=== PATIENT | female | born 1970 | race Caucasian/White ===

== ENCOUNTER 2018-07-22 15:39 | Outpatient (CLI) | payer OTHER ==
--- NOTE | 2018-07-22 16:04 | RAD ---
Chest 2 views HISTORY: Disability exam. Dyspnea. FINDINGS: No comparison. Cardiac silhouette and pulmonary vasculature are unremarkable. Mediastinum i s midline. No confluent airspace consolidation, pneumothorax, or pleural fluid. IMPRESSION: No active cardiopulmonary abnormalities are demonstrated.
--- NOTE | 2018-07-22 16:09 | RAD ---
Lumbar spine 2 views HISTORY: Low back pain. Disability evaluation. FINDINGS: There are 5 lumbar type vertebrae. Pedicles are intact. Vertebral body heights are maintain ed. Very mild physiologic wedging of the lower thoracic vertebrae on the lateral view. Prominent osteophytosis throughout the lower facets with scattered osteophytosis throughout the vertebral janel s. Disc space narrowing and minimal degenerative spondylolisthesis at the L4-5 level. IMPRESSION: Osseous degenerative changes lumbar spine. No acute osseous abnormalities are demonstrate d. No evidence of compression fracture.
== END 2018-07-22 15:40 | disposition home or self-care (01) ==
LOC: BICRAD 15:39
PROVIDERS: ATTEND Internal Medicine
DX: Z02.71 Encounter for disability determination (principal); M47.816 Spondylosis without myelopathy or radiculopathy, lumbar region
CPT/HCPCS: 71046; 72100

== ENCOUNTER 2018-12-22 15:22 | Emergency (ER) ==
[2018-12-22 16:08] LABS: #Lymphocytes 1.8 thou/uL (1.20-3.40); #Monocytes 0.7 thou/uL (0.11-0.59); #Neutrophils 8.4 thou/uL (1.40-6.50); %Basophils 0.2 % (0.0-1.0); %Eosinophils 0.1 % (0.0-10.0); %Lymphocytes 16.6 % (21.0-51.0); %Monocytes 6.6 % (0.0-10.0); %Neutrophils 76.5 % (42.0-75.0); Hemoglobin 13.6 g/dL (12.0-16.0); Mean Corpuscular HGB CONC 33.3 g/dL (32.0-36.0); Mean Corpuscular Hemoglobin 28.8 pg (27.0-31.0); Mean Corpuscular Volume 86.4 fL (78.0-98.0); Mean Platelet Volume 8.9 fL (7.4-10.4); Platelet Count 276 thou/uL (130-400); RBC Distribution Width 12.1 % (11.5-14.5); Red Blood Cell (RBC) Count 4.72 mill/uL (4.20-5.40); White Blood Cell (WBC) Count 10.9 thou/uL (4.8-10.8)
[2018-12-22 16:15] LABS: Amphetamine Detected (NotDetected); Barbiturates Screen Not Detected (NotDetected); Benzodiazepine Screen Not Detected (NotDetected); Cocaine Metabolite Screen Not Detected (NotDetected); Medtox Reader # READER 4; Methadone Not Detected (NotDetected); Methamphetamine Detected (NotDetected); Opiate Screen Not Detected (NotDetected); Oxycodone Screen Not Detected (NotDetected); Phencyclidine (PCP) Not Detected (NotDetected); THC/Cannabinoid Screen Not Detected (NotDetected); Tricyclic Screen Not Detected (NotDetected)
[2018-12-22 16:16] LABS: Medtox Control Line Valid? VALID (VALID)
[2018-12-22 16:20] LABS: Bilirubin Negative (Negative); Blood, Urine Trace (Negative); Calcium Oxalate Crystals Rare HPF (None Seen); Clarity Clear (Clear); Glucose, Urine (Dipstick) 30 mg/dL (Negative); Leukocyte Negative Leu/uL (Negative); Nitrite Negative (Negative); Protein, Urine (Dipstick) Negative (Neg-Trace); Urobilinogen 3 mg/dL (Less than 2); WBC/HPF 0-3 HPF (0-3)
[2018-12-22 16:28] LABS: Bacteria/HPF Rare-Few HPF (None Seen); Mucous/LPF 1+ LPF (<2+)
[2018-12-22 16:29] LABS: ALT (SGPT) 26 U/L (8-55); AST (SGOT) 25 U/L (5-34); Albumin 3.8 g/dL (3.5-5.0); Alkaline Phosphatase 80 U/L (40-110); Anion Gap 11 mmol/L (10-20); BUN (Urea Nitrogen) 7 mg/dL (7.0-18.7); Bilirubin, Total 0.6 mg/dL (0.2-1.2); Calc. Creatinine Clearance 0 mL/min (70-130); Calcium 8.8 mg/dL (7.8-10.44); Carbon Dioxide 24 mmol/L (22-29); Chloride 107 mmol/L (98-107); Estimated GFR-MDRD 84; Globulin 3.2 g/dL (2.4-3.5); Glucose 85 mg/dL (70-105); Potassium 3.7 mmol/L (3.5-5.1); Sodium 138 mmol/L (136-145)
--- NOTE | 2018-12-25 23:23 | EKG ---
Test Reason : AMS Blood Pressure : / mmHG Vent. Rate : 104 BPM Atrial Rate : 104 BPM P-R Int : 142 ms QRS Dur : 088 ms QT Int : 358 ms P-R-T Axes : 053 004 033 degrees QTc Int : 470 ms Sinus tachycardia Otherwise normal ECG Confirmed by EVELIO AGUERO DO ([id number]), magazine editor ROSALBA BRUNER ([id number]) on 12/25/2018 11:23:13 PM Referred By: Confirmed By:EVELIO AGUERO DO
== END 2018-12-22 17:23 | disposition left against medical advice (07) ==
LOC: ERS 15:22
DX: F19.10 Other psychoactive substance abuse, uncomplicated (principal); E11.9 Type 2 diabetes mellitus without complications; J44.9 Chronic obstructive pulmonary disease, unspecified; F17.210 Nicotine dependence, cigarettes, uncomplicated
CPT/HCPCS: 36415; 80053; 80306; 81003; 81015; 85025; 93005

== ENCOUNTER 2019-01-03 00:41 | Emergency (ER) | payer SELFPAY ==
--- NOTE | 2019-01-03 08:51 | RAD ---
PORTABLE CHEST: DATE: 01/03/2019. PROVIDED CLINICAL HISTORY: Chest pain. FINDINGS: Comparison 01/02/2019. Cardiac and mediastinal silhouette is within normal limits. Lungs appear dav ar. No pleural fluid or pneumothorax apparent. IMPRESSION: No evidence for an acute cardiopulmonary process. POS: OFF
== END 2019-01-03 03:49 | disposition left against medical advice (07) ==
LOC: ERS 00:41
DX: R07.9 Chest pain, unspecified (principal); E11.9 Type 2 diabetes mellitus without complications; J44.9 Chronic obstructive pulmonary disease, unspecified; F17.210 Nicotine dependence, cigarettes, uncomplicated; Z71.6 Tobacco abuse counseling; Z79.4 Long term (current) use of insulin; Z79.899 Other long term (current) drug therapy
CPT/HCPCS: 36415; 71045; 84484; 85379; 93005; 99406

== ENCOUNTER 2019-02-28 18:06 | Inpatient (IN) | payer SELFPAY ==
[2019-02-28 19:15] LABS: Actual Bicarbonate (HCO3a) 24.9 mEq/L (22-28); Analyzer IN Cardio ER; Base Excess (BEa) 0.4 mEq/L (-2.0 to +3.0); CO2 Tension 39.8 mmHg (35.0-45.0); Calcium, Ionized 1.16 mmol/L (1.12-1.30); Carboxyhemoglobin (COHb) 3.1 gm% (0.0-3.0); Hemoglobin (Hb) 13.4 g/dL (12.0-16.0); O2 Tension (PaO2) 92.7 mmHg (80.0-100.0); Potassium - ABG Lab 3.85 mmol/L (3.70-5.30); pH, Arterial 7.42 (7.35-7.45)
[2019-02-28 19:19] LABS: Puncture Site RRA
[2019-02-28 19:25] LABS: #Eosinphils 0.1 thou/uL (0.0-0.7); #Lymphocytes 3.2 thou/uL (1.20-3.40); #Monocytes 0.9 thou/uL (0.11-0.59); #Neutrophils 9.7 thou/uL (1.40-6.50); %Basophils 0.1 % (0.0-1.0); %Lymphocytes 23.1 % (21.0-51.0); %Monocytes 6.4 % (0.0-10.0); %Neutrophils 69.4 % (42.0-75.0); Hemoglobin 13.1 g/dL (12.0-16.0); Mean Corpuscular HGB CONC 33.3 g/dL (32.0-36.0); Mean Corpuscular Volume 86.9 fL (78.0-98.0); Mean Platelet Volume 8.3 fL (7.4-10.4); Platelet Count 302 thou/uL (130-400); RBC Distribution Width 12.6 % (11.5-14.5); Red Blood Cell (RBC) Count 4.53 mill/uL (4.20-5.40)
[2019-02-28 19:40] LABS: Bilirubin Negative (Negative); Blood, Urine Negative (Negative); Clarity Clear (Clear); Glucose, Urine (Dipstick) Normal (Negative); Leukocyte Negative Leu/uL (Negative); Nitrite Negative (Negative); Protein, Urine (Dipstick) Negative (Neg-Trace); Urobilinogen Normal mg/dL (Less than 2)
[2019-02-28 19:50] LABS: ALT (SGPT) 22 U/L (8-55); AST (SGOT) 26 U/L (5-34); Albumin 3.5 g/dL (3.5-5.0); Alkaline Phosphatase 87 U/L (40-110); Anion Gap 10 mmol/L (10-20); BUN (Urea Nitrogen) 10 mg/dL (7.0-18.7); Bilirubin, Total 0.4 mg/dL (0.2-1.2); Calc. Creatinine Clearance 0 mL/min (70-130); Calcium 8.7 mg/dL (7.8-10.44); Carbon Dioxide 25 mmol/L (22-29); Chloride 110 mmol/L (98-107); Estimated GFR-MDRD Greater than 90; Glucose 107 mg/dL (70-105); Lipase 18 U/L (8-78); Magnesium 1.8 mg/dL (1.6-2.6); Potassium 3.8 mmol/L (3.5-5.1); Protein, Total 6.5 g/dL (6.0-8.3); Sodium 141 mmol/L (136-145)
[2019-02-28] MEDS ORDERED: Sodium Chloride 0.9% 100 ML ONE (19:56)
[2019-02-28] MEDS ORDERED: Cefepime 2 GM VIAL ONE (19:56)
[2019-02-28] MEDS ORDERED: Vancomycin 1.5 GRAM/300 ML BAG 1.5 GM in Premix Bag 1 BAG IVPB SCH (20:00)
--- NOTE | 2019-02-28 20:24 | RAD ---
PORTABLE CHEST: History: Mental status change. Overdose. Comparison: 01-03-19 FINDINGS: Lungs appear clear. No infiltrate identified. Heart and mediastinum unremarkable. Visualized osseous structures appear intact. IMPRESSION: No acute findings. POS: OFF
--- NOTE | 2019-02-28 20:24 | CT ---
CT HEAD WITHOUT CONTRAST: Indications: Overdose. Mental status change. FINDINGS: The ventricles have normal size and position. No evidence for intracranial mass or hemorrhage. No inf arct or edema. Sinuses and mastoids appear clear. IMPRESSION: No acute abnormality. POS: OFF
[2019-02-28] MEDS ORDERED: Succinylcholine Chloride 20 MG/ML 10 ml SYRINGE FS ONE (20:25)
[2019-02-28] MEDS ORDERED: Fentanyl 100 MCG/2 ML VIAL ONE (20:46)
[2019-02-28] MEDS ORDERED: Midazolam HCl 2 mg/2 ml Vial ONE (20:49)
[2019-02-28 21:02] LABS: Amphetamine Detected (NotDetected); Barbiturates Screen Not Detected (NotDetected); Benzodiazepine Screen Not Detected (NotDetected); Cocaine Metabolite Screen Not Detected (NotDetected); Medtox Control Line Valid? VALID (VALID); Medtox Reader # READER 4; Methadone Not Detected (NotDetected); Methamphetamine Detected (NotDetected); Opiate Screen Not Detected (NotDetected); Oxycodone Screen Not Detected (NotDetected); Phencyclidine (PCP) Not Detected (NotDetected); THC/Cannabinoid Screen Not Detected (NotDetected); Tricyclic Screen Detected (NotDetected)
[2019-02-28] MEDS ORDERED: fentaNYL Citrate/PF 2,000 MCG in Sodium Chloride 0.9% 60 ML IV SCH (21:02)
--- NOTE | 2019-02-28 21:04 | RAD ---
Portable chest: HISTORY: Intubation COMPARISON: Film earlier today FINDINGS: Lung stevens are clear. Heart and mediastinum appear unremarkable. Vascularity is normal. E T tube has tip above greer. NG tube appears adequately positioned. Visualized osseous structures unremarkable. IMPRESSION: No acute finding
[2019-02-28 21:11] LABS: Acetaminophen Less than 6.0 mcg/mL (10.0-30.0); Alcohol Less than 10 mg/dL (Less than 10); Salicylate Less than 8.0 mg/dL (15.0-30.0)
[2019-02-28 21:12] LABS: Actual Bicarbonate (HCO3a) 20.3 mEq/L (22-28); Analyzer IN Cardio ER; Base Excess (BEa) -4.3 mEq/L (-2.0 to +3.0); CO2 Tension 35.9 mmHg (35.0-45.0); Calcium, Ionized 1.14 mmol/L (1.12-1.30); Carboxyhemoglobin (COHb) 2.1 gm% (0.0-3.0); Hemoglobin (Hb) 12.4 g/dL (12.0-16.0); O2 Tension (PaO2) 62.8 mmHg (80.0-100.0); Potassium - ABG Lab 3.65 mmol/L (3.70-5.30); pH, Arterial 7.37 (7.35-7.45)
[2019-02-28 21:14] LABS: ALV-art Gradient 106.225 (0-20); Puncture Site RBA
[2019-02-28] MEDS ORDERED: Ondansetron PF 4 MG/2 ML Vial IVP PRN (21:22)
--- NOTE | 2019-02-28 22:05 | HP ---
PRESENTING COMPLAINT: Altered mental status. HISTORY OF PRESENT ILLNESS: Ms. Rajeev Yang is a 48-year-old female with reported history of being homeless, who was brought in by EMS after she was found along the road, confused. The patient has also told the EMS that she has taken 27 pills of Seroquel. It is unclear where the patient got the Seroquel from. She was brought by EMS and initially the patient was agitated, bit confused on arrival at the ED; however, became progressively obtunded and unresponsive and she was intubated for airway protection. She did receive Ativan x2 as well as Narcan as recommended by Poison Control prior to the intubation. She is currently on vent now and unable to give more history. PAST MEDICAL HISTORY: None, but presumed psychiatric disorder. HOME MEDICATIONS: Unknown and not available from medication record. ALLERGY: As per record, diphenhydramine. REVIEW OF SYSTEMS: Unable to obtain. PHYSICAL EXAMINATION: VITAL SIGNS: On presentation, current vitals; blood pressure of 102/66, pulse of 93, respiratory rate of 18, O2 saturation 100% on vent, FiO2 of 50%, reduced now to 30%, PEEP of 5. GENERAL: Average built, slightly overweight, middle-aged female, intubated, orally tubed. HEENT: Head is atraumatic, normocephalic. Pupils equal and reactive to light. NECK: No JVD. No carotid bruit. RESPIRATORY: Good air entry bilaterally. CARDIOVASCULAR: S1, S2. Mildly tachycardic. GI: Abdomen is full, soft, nontender. EXTREMITIES: No pedal edema. No calf tenderness. No open wounds. NEUROLOGIC: The patient is intubated, post sedation. LABORATORY DATA: WBC 14.0 with 69% neutrophils, no bands. Hemoglobin 13, platelets normal at 302. Initial ABG on presentation with pH of 7.37, pO2 of 62, and pCO2 of 35. On presentation in the ED post extubation, pH of 7.42, pCO2 of 39, and pO2 of 92. Vent settings adjusted. Sodium 141, potassium 3.8, bicarb of 25, BUN 10, creatinine 0.6, glucose 107, magnesium 1.8. AST and alkaline phosphatase normal. Troponin less than 0.01. Lipase and albumin normal. Urinalysis was negative. Urine drug screen was positive for tricyclics as well as amphetamine and methamphetamine. Influenza A and B negative. Chest x-ray shows no acute intrathoracic pathology. Head CT was negative for any acute pathology. EKG shows sinus tachycardia at 115 beats per minute with QTc of 344, corrected of 475. IMPRESSION: 1. Altered mental status with toxic encephalopathy. 2. Methamphetamine and Seroquel overdose. 3. On mechanical ventilation for airway protection. 4. Leukocytosis, mild. PLAN: We will admit the patient to intensive care unit. We will manage the patient for the following; 1. Acute respiratory failure due to altered mental status and intubated for airway protection. We will reduce vent settings to low settings. Possibly, no sedative medication for now. The patient can safely be weaned off the vent when more awake and conversant. We will consult Pulmonary to follow while in ICU. 2. Toxic encephalopathy, likely due to methamphetamine abuse with presumed Seroquel overdose given urine tox of elevated tricyclics. We will start the patient on D5 NS. Continue gentle hydration for now. Monitor daily EKG for QTc prolongation. 3. Follow magnesium level. 4. History of psych disorder. The patient might need Psych evaluation post extubation prior to discharge. 5. DVT prophylaxis, subcutaneous Lovenox. 6. Advance directives, unable to obtain given the patient is intubated. 7. Disposition: Reported the patient is homeless. We will consult case management to look into patient's social setting when patient is more awake. Total time spent in review of record, evaluation, and discussion with the ED physician greater than 60 minutes. Job ID: [id number]
[2019-03-01 00:26] VITALS: BMI 36.5
[2019-03-01] MEDS: Piperacillin/Tazobactam 3.375 GM in Sodium Chloride 0.9% 100 ML IVPB SCH ×2 (01:36→05:44)
[2019-03-01] MEDS: Dextrose 5 % And 0.9 % NaCl 1,000 ML IV SCH ×3 (01:38→12:41)
[2019-03-01 03:52] LABS: #Eosinphils 0.1 thou/uL (0.0-0.7); #Lymphocytes 2.3 thou/uL (1.20-3.40); #Monocytes 0.7 thou/uL (0.11-0.59); #Neutrophils 8.1 thou/uL (1.40-6.50); %Basophils 0.4 % (0.0-1.0); %Eosinophils 0.6 % (0.0-10.0); %Lymphocytes 20.7 % (21.0-51.0); %Monocytes 6.2 % (0.0-10.0); %Neutrophils 72.2 % (42.0-75.0); Mean Corpuscular HGB CONC 32.9 g/dL (32.0-36.0); Mean Corpuscular Hemoglobin 28.8 pg (27.0-31.0); Mean Corpuscular Volume 87.7 fL (78.0-98.0); Mean Platelet Volume 7.9 fL (7.4-10.4); Platelet Count 264 thou/uL (130-400); RBC Distribution Width 12.5 % (11.5-14.5); Red Blood Cell (RBC) Count 4.16 mill/uL (4.20-5.40); White Blood Cell (WBC) Count 11.2 thou/uL (4.8-10.8)
[2019-03-01 04:09] LABS: ALT (SGPT) 20 U/L (8-55); AST (SGOT) 20 U/L (5-34); Albumin 3.2 g/dL (3.5-5.0); Alkaline Phosphatase 78 U/L (40-110); Anion Gap 10 mmol/L (10-20); BUN (Urea Nitrogen) 8 mg/dL (7.0-18.7); Bilirubin, Total 0.7 mg/dL (0.2-1.2); Calc. Creatinine Clearance 166 mL/min (70-130); Calcium 8.5 mg/dL (7.8-10.44); Carbon Dioxide 24 mmol/L (22-29); Chloride 111 mmol/L (98-107); Estimated GFR-MDRD Greater than 90; Globulin 2.8 g/dL (2.4-3.5); Glucose 148 mg/dL (70-105); Magnesium 1.9 mg/dL (1.6-2.6); Potassium 3.8 mmol/L (3.5-5.1); Sodium 141 mmol/L (136-145)
[2019-03-01 04:14] LABS: Troponin I Less than 0.010 ng/mL (< 0.028)
[2019-03-01] MEDS ORDERED: Famotidine/PF 20 mg/2ml Vial SLOW IVP SCH (09:00)
--- NOTE | 2019-03-01 10:06 | PDOC.HOSPP ---
- Subjective Encounter Date: 03/01/19 Encounter Time: 10:04 Subjective: Ms. Boo was seen today in follow-up of overdose of Seroquel. She is intubated and sedated. - Objective Vital Signs & Weight: Vital Signs (12 hours) Temp Pulse Resp BP Pulse Ox 03/01/19 08:08 77 101/57 L 03/01/19 08:00 98.4 F 12 100 03/01/19 06:00 12 03/01/19 05:00 98.6 F 03/01/19 04:00 12 03/01/19 02:45 83 117/70 03/01/19 02:00 12 03/01/19 01:05 100 03/01/19 00:33 100 03/01/19 00:27 88 141/76 H 03/01/19 00:26 98.5 F 03/01/19 00:00 98.5 F 12 Weight Weight 212 lb 15.465 oz Most Recent Monitor Data Heart Rate from ECG 79 NIBP 101/57 NIBP BP-Mean 71 Respiration from ECG 12 SpO2 100 I&O: 02/28/19 03/01/19 03/02/19 06:59 06:59 06:59 Intake Total 1069 Output Total 2725 390 Balance -1656 -390 Result Diagrams: 03/01/19 03:43 03/01/19 03:14 Additional Labs: Accuchecks 03/01/19 02/28/19 00:26 19:10 POC Glucose 140 H 108 Hospitalist ROS - Medication Medications: Active Medications Generic Name Dose Route Start Last Admin Trade Name Freq PRN Reason Stop Dose Admin Dextrose/Sodium Chloride 1,000 mls @ 125 mls/hr 02/28/19 21:30 03/01/19 05:45 D5 0.9% Ns IV 1,000 mls .Q8H MIGUEL Administration Piperacillin Sod/Tazobactam 100 mls @ 200 mls/hr 02/28/19 23:59 03/01/19 05: 44 Sod 3.375 gm/ Sodium Chloride IVPB 100 mls Q6HR MIGUEL Administration - Exam Eye: PERRL Heart: RRR, no murmur, no gallops, no rubs, normal peripheral pulses Respiratory: CTAB, no wheezes, no rales, no ronchi, normal chest expansion, no tachypnea, normal percussion Gastrointestinal: soft, non-tender, non-distended, normal bowel sounds, no palpable masses, no hepatomegaly, no splenomegaly Extremities: no cyanosis, no clubbing, no edema Hosp A/P (1) Overdose of antipsychotic Code(s): T43.501A - POISONING BY UNSP ANTIPSYCHOT/NEUROLEPT, ACCIDENTAL, INIT Status: Acute (2) Acute respiratory failure with hypoxemia Code(s): J96.01 - ACUTE RESPIRATORY FAILURE WITH HYPOXIA Status: Acute - Plan * Acute respiratory failure due to Seroquel Overdose- continue supportive care * Will await further recommendations from PCCM * [facility] evaluation once stable
[2019-03-01] MEDS: Enoxaparin Sodium 40 MG/0.4 ML SYRINGE SC SCH (10:10)
--- NOTE | 2019-03-01 15:11 | CON ---
DATE OF CONSULTATION: 03/01/2019 SERVICE: Pulmonary Medicine. REASON FOR CONSULT: ICU patient. HISTORY OF PRESENT ILLNESS: The patient is a 48-year-old white female with past medical history significant for a history of suicide attempts. Ultimately, she was in her usual state of health when she intentionally overdosed on some Seroquel. On the way to the Emergency Department, she became increasingly somnolent, and she was intubated to protect her airway. Currently, she is sedated on mechanical ventilation. She cannot provide any additional elements of the history. It is apparent that she took about 27 pills of that Seroquel. PAST MEDICAL HISTORY: Psychiatric disorder, not currently specified. PAST SURGICAL HISTORY: Unknown. ALLERGIES: DIPHENHYDRAMINE. MEDICATIONS: List of the inpatient medications was reviewed. Multiple updates were made. FAMILY HISTORY: Noncontributory. SOCIAL HISTORY: Unknown. REVIEW OF SYSTEMS: This cannot be obtained as the patient is currently intubated and sedated. PHYSICAL EXAMINATION: VITAL SIGNS: Afebrile, pulse 77, blood pressure 143/81, respirations 12, and saturation 100%, currently on 21% FiO2 and a PEEP of 5. GENERAL: The patient is intubated and sedated. HEENT: Normocephalic and atraumatic. Sclerae white. Conjunctivae pink. Oral mucosa is moist without lesions. LUNGS: Decent air entry. No prolonged expiratory phase or wheezing is appreciated. HEART: Normal rate. Regular. ABDOMEN: Soft, nontender, and nondistended. Bowel sounds positive. MUSCULOSKELETAL: No cyanosis or clubbing. There is no pitting in the bilateral lower extremities. NEUROLOGIC: Grossly nonfocal. LABORATORY DATA: WBC 11.2, hemoglobin 12.0, and platelets 264,000. A pH of 7.37, pCO2 of 36, and pO2 of 63. Basic metabolic profile and liver function studies otherwise unremarkable. TSH 1.7. Ammonia 35, lactate 1.5, troponin is negative. Urinalysis is unremarkable. Urine drug screen is positive for amphetamines and tricyclics. Otherwise; alcohol, acetaminophen, and salicylates are unremarkable. Influenza A and B are negative. Blood cultures x2 remain negative to-date. ASSESSMENT: 1. Respiratory failure secondary to inability to protect airway. 2. Metabolic encephalopathy. 3. Intentional drug overdose with Seroquel. DISCUSSION AND PLAN: I will give her a sedation holiday. When she meets criteria, extubation will be done. At that point, if she demonstrates decent mentation, she can be transitioned to the floor. At this point, she has a narrow complex, and no significant QTc prolongation. As such, I do not even think she needs telemetry. MHMR evaluation will need to be done prior to her dismissal from the hospital. She was placed on antibiotics, but frankly I do not see the need for it, so the Zosyn will be interrupted. CRITICAL CARE TIME: 30 minutes. Job ID: [id number] MTDD
[2019-03-02] MEDS: Dextrose 5 % And 0.9 % NaCl 1,000 ML IV SCH ×3 (02:49→15:30)
[2019-03-02] MEDS: Enoxaparin Sodium 40 MG/0.4 ML SYRINGE SC SCH (08:58)
[2019-03-02 17:29] LABS: Troponin I Less than 0.010 ng/mL (< 0.028)
--- NOTE | 2019-03-02 17:33 | PDOC.HOSPP ---
- Subjective Encounter Date: 03/02/19 Encounter Time: 17:31 Subjective: Ms. Boo was seen today in follow-up. She notes some chest pressure, no dyspnea , no nausea or vomiting. - Objective Vital Signs & Weight: Vital Signs (12 hours) Temp Pulse Resp BP Pulse Ox 03/02/19 15:45 97.8 F 104 H 16 132/79 97 03/02/19 11:17 98.7 F 100 20 135/76 89 L 03/02/19 08:00 98.3 F 87 20 134/73 98 03/02/19 06:20 97.8 F 92 18 165/87 H 97 Weight Weight 212 lb 15.465 oz Most Recent Monitor Data Heart Rate from ECG 89 NIBP 138/90 NIBP BP-Mean 106 Respiration from ECG 12 SpO2 99 I&O: 03/01/19 03/02/19 03/03/19 06:59 06:59 06:59 Intake Total 1069 2280 Output Total 2725 2210 Balance -1656 70 Result Diagrams: 03/01/19 03:43 03/01/19 03:14 Hospitalist ROS - Medication Medications: Active Medications Generic Name Dose Route Start Last Admin Trade Name Freq PRN Reason Stop Dose Admin Enoxaparin Sodium 40 mg 03/01/19 09:00 03/02/19 08:58 Lovenox SC 40 mg 0900 MIGUEL Administration Dextrose/Sodium Chloride 1,000 mls @ 75 mls/hr 03/01/19 11:06 03/02/19 15:30 D5 0.9% Ns IV 1,000 mls .[id number] MIGUEL Administration Sodium Chloride 10 ml 03/01/19 09:00 03/02/19 08:59 Flush - Normal Saline IVF 10 ml Q12HR MIGUEL Administration - Exam Eye: PERRL Heart: RRR, no murmur, no gallops, no rubs, normal peripheral pulses Respiratory: CTAB, no wheezes, no rales, no ronchi, normal chest expansion, no tachypnea, normal percussion Gastrointestinal: soft, non-tender, non-distended, normal bowel sounds, no palpable masses, no hepatomegaly Extremities: no cyanosis Hosp A/P (1) Overdose of antipsychotic Code(s): T43.501A - POISONING BY UNSP ANTIPSYCHOT/NEUROLEPT, ACCIDENTAL, INIT Status: Acute (2) Acute respiratory failure with hypoxemia Code(s): J96.01 - ACUTE RESPIRATORY FAILURE WITH HYPOXIA Status: Acute (3) Depression Code(s): F32.9 - MAJOR DEPRESSIVE DISORDER, SINGLE EPISODE, UNSPECIFIED Status : Acute (4) Suicidal ideation Code(s): R45.851 - SUICIDAL IDEATIONS Status: Acute (5) Chest pain Code(s): R07.9 - CHEST PAIN, UNSPECIFIED Status: Acute - Plan * Acute respiratory failure due to Seroquel Overdose-she is now extubated, and stable * Chest pain- EKG noted, and was negative for any acute change- will check troponin, and give a trial of maalox * Depression- she will need evaluation by [facility] for discharge disposition
[2019-03-02] MEDS ORDERED: Mag-Al Plus 1200 MG/1200 MG/120 MG/30 ML UDCUP PO PRN (17:35)
[2019-03-02 18:53] LABS: Troponin I Less than 0.010 ng/mL (< 0.028)
[2019-03-02] MEDS: Acetaminophen 325 MG TAB PO PRN (21:11)
[2019-03-03] MEDS: Acetaminophen 325 MG TAB PO PRN (02:20)
[2019-03-03] MEDS: Phenazopyridine HCl 97.5 MG TABLET PO SCH ×3 (09:22→17:51)
[2019-03-03] MEDS: Enoxaparin Sodium 40 MG/0.4 ML SYRINGE SC SCH (09:22)
--- NOTE | 2019-03-03 14:13 | PDOC.HOSPP ---
- Subjective Encounter Date: 03/03/19 Encounter Time: 14:11 Subjective: Ms. Boo was seen today in follow-up of suicide attempt. She does not have any new complaints. - Objective Vital Signs & Weight: Vital Signs (12 hours) Temp Pulse Resp BP Pulse Ox 03/03/19 08:00 98.2 F 95 20 127/71 96 03/03/19 04:04 98.3 F 83 18 132/69 97 Weight Weight 212 lb 15.465 oz Most Recent Monitor Data Heart Rate from ECG 89 NIBP 138/90 NIBP BP-Mean 106 Respiration from ECG 12 SpO2 99 I&O: 03/02/19 03/03/19 03/04/19 06:59 06:59 06:59 Intake Total 2280 480 Output Total 2210 3575 Balance 70 -3095 Result Diagrams: 03/01/19 03:43 03/01/19 03:14 Hospitalist ROS - Medication Medications: Active Medications Generic Name Dose Route Start Last Admin Trade Name Freq PRN Reason Stop Dose Admin Acetaminophen 650 mg 03/02/19 20:58 03/03/19 02:20 Tylenol PO 650 mg Q4H PRN Administration Fever/Mild Pain Enoxaparin Sodium 40 mg 03/01/19 09:00 03/03/19 09:22 Lovenox SC 40 mg 0900 MIGUEL Administration Phenazopyridine HCl 97.5 mg 03/03/19 09:00 03/03/19 12:24 Azo Standard PO 97.5 mg PC MIGUEL Administration Sodium Chloride 10 ml 03/01/19 09:00 03/03/19 09:28 Flush - Normal Saline IVF 10 ml Q12HR MIGUEL Administration - Exam Eye: PERRL Heart: RRR, no murmur, no gallops, no rubs, normal peripheral pulses Respiratory: CTAB, no wheezes, no rales, no ronchi, normal chest expansion, no tachypnea, normal percussion Gastrointestinal: soft, non-tender, non-distended, normal bowel sounds, no palpable masses, no hepatomegaly Hosp A/P (1) Overdose of antipsychotic Code(s): T43.501A - POISONING BY UNSP ANTIPSYCHOT/NEUROLEPT, ACCIDENTAL, INIT Status: Acute (2) Acute respiratory failure with hypoxemia Code(s): J96.01 - ACUTE RESPIRATORY FAILURE WITH HYPOXIA Status: Acute (3) Depression Code(s): F32.9 - MAJOR DEPRESSIVE DISORDER, SINGLE EPISODE, UNSPECIFIED Status : Acute (4) Suicidal ideation Code(s): R45.851 - SUICIDAL IDEATIONS Status: Acute (5) Chest pain Code(s): R07.9 - CHEST PAIN, UNSPECIFIED Status: Acute - Plan * Acute respiratory failure due to Seroquel Overdose-clinically stable * Depression and suicidal ideation- continue suicide precautions, and await [facility] evaluation
[2019-03-04 06:26] LABS: #Eosinphils 0.2 thou/uL (0.0-0.7); #Lymphocytes 3.1 thou/uL (1.20-3.40); #Monocytes 0.7 thou/uL (0.11-0.59); #Neutrophils 6.1 thou/uL (1.40-6.50); %Basophils 0.3 % (0.0-1.0); %Eosinophils 2.3 % (0.0-10.0); %Lymphocytes 30.4 % (21.0-51.0); %Monocytes 6.8 % (0.0-10.0); %Neutrophils 60.2 % (42.0-75.0); Hemoglobin 13.3 g/dL (12.0-16.0); Mean Corpuscular HGB CONC 32.9 g/dL (32.0-36.0); Mean Corpuscular Hemoglobin 28.4 pg (27.0-31.0); Mean Corpuscular Volume 86.4 fL (78.0-98.0); Mean Platelet Volume 8.2 fL (7.4-10.4); Platelet Count 287 thou/uL (130-400); RBC Distribution Width 12.1 % (11.5-14.5); Red Blood Cell (RBC) Count 4.69 mill/uL (4.20-5.40); White Blood Cell (WBC) Count 10.1 thou/uL (4.8-10.8)
[2019-03-04 06:35] LABS: ALT (SGPT) 26 U/L (8-55); AST (SGOT) 33 U/L (5-34); Albumin 3.4 g/dL (3.5-5.0); Alkaline Phosphatase 84 U/L (40-110); Anion Gap 13 mmol/L (10-20); BUN (Urea Nitrogen) 11 mg/dL (7.0-18.7); Bilirubin, Total 0.3 mg/dL (0.2-1.2); Calc. Creatinine Clearance 161 mL/min (70-130); Calcium 8.8 mg/dL (7.8-10.44); Carbon Dioxide 24 mmol/L (22-29); Chloride 104 mmol/L (98-107); Estimated GFR-MDRD Greater than 90; Globulin 3.5 g/dL (2.4-3.5); Glucose 117 mg/dL (70-105); Potassium 3.8 mmol/L (3.5-5.1); Protein, Total 6.9 g/dL (6.0-8.3); Sodium 137 mmol/L (136-145)
[2019-03-04] MEDS: Phenazopyridine HCl 97.5 MG TABLET PO SCH ×2 (08:09→13:16)
[2019-03-04] MEDS: Enoxaparin Sodium 40 MG/0.4 ML SYRINGE SC SCH (08:09)
[2019-03-04 12:34] VITALS: BP 120/66; TEMP 98.5
[2019-03-04] MEDS ORDERED: Nicotine 14 MG PATCH TD SCH (14:45)
--- NOTE | 2019-03-05 03:05 | DIS ---
DATE OF ADMISSION: 02/28/2019 DATE OF DISCHARGE: 03/04/2019 DISCHARGE DISPOSITION: Home. DISCHARGE DIAGNOSES: 1. Suicide attempt. 2. Schizoaffective disorder. DISCHARGE MEDICATIONS: None, to be determined by the psychiatrist. PROCEDURES DONE DURING ADMISSION: The patient had a CT scan of the brain, which was negative for any acute intracranial abnormalities. CODE STATUS: Full code. ALLERGIES: TO DIPHENHYDRAMINE. HOSPITAL COURSE: Ms. Boo is a pleasant 48-year-old female, who attempted suicide by taking 27 of her Seroquel tablets. She was admitted and intubated to protect her airway. She stabilized overnight and was able to be extubated. She was monitored in the ICU and then transferred to the medical floor. She had an EKG on admission as well as an EKG two days into her admission, both of which were negative. Lab work was essentially unremarkable other than a positive urine drug screen for methamphetamine and amphetamines as well as tricyclics. She was evaluated by [facility] and recommended for inpatient psychiatric care and was transferred to the [facility] in [place], [place]. Job ID: [id number]
== END 2019-03-04 16:04 | disposition short-term general hospital (02) | DRG 917 ==
LOC: ERS 18:06 → CCU 23:46 → T4-B 03-02 06:49
PROVIDERS: ADMIT Internal Medicine; ATTEND Internal Medicine
PROC: 0BH17EZ Insertion of Endotracheal Airway into Trachea, Via Natural or Artificial Opening (ICD-10-PCS; principal; 2019-02-28)
PROC: 5A1945Z Respiratory Ventilation, 24-96 Consecutive Hours (ICD-10-PCS; 2019-02-28)
DX: T43.592A Poisoning by other antipsychotics and neuroleptics, intentional self-harm, initial encounter (principal); G92 Toxic encephalopathy; J96.01 Acute respiratory failure with hypoxia; F32.9 Major depressive disorder, single episode, unspecified; T43.622A Poisoning by amphetamines, intentional self-harm, initial encounter; D72.829 Elevated white blood cell count, unspecified; Z59.0 Homelessness; Z88.8 Allergy status to other drugs, medicaments and biological substances
CPT/HCPCS: 31500; 36415; 36416; 70450; 71045; 80053; 80306; 80307; 81003; 82140; 82805; 83605; 83690; 83735; 84443; 84484; 85025; 87040; 87086; 87804; 93005; 93010; 94002; 96361; 96365; 96366; 96368; 96375; J0692; J1650; J2250; J2543; J3010; J3490; S0028

== ENCOUNTER 2019-08-02 13:29 | Emergency (ER) | payer OTHER ==
[2019-08-02 14:10] LABS: #Eosinphils 0.1 thou/uL (0.0-0.7); #Lymphocytes 2.9 thou/uL (1.20-3.40); #Monocytes 0.7 thou/uL (0.11-0.59); #Neutrophils 5.7 thou/uL (1.40-6.50); %Basophils 0.5 % (0.0-1.0); %Eosinophils 0.6 % (0.0-10.0); %Lymphocytes 31.1 % (21.0-51.0); %Monocytes 7.7 % (0.0-10.0); %Neutrophils 60.1 % (42.0-75.0); Hemoglobin 13.3 g/dL (12.0-16.0); Mean Corpuscular HGB CONC 32.7 g/dL (32.0-36.0); Mean Corpuscular Hemoglobin 29.1 pg (27.0-31.0); Mean Corpuscular Volume 88.9 fL (78.0-98.0); Mean Platelet Volume 8.5 fL (7.4-10.4); Platelet Count 264 thou/uL (130-400); RBC Distribution Width 11.9 % (11.5-14.5); Red Blood Cell (RBC) Count 4.58 mill/uL (4.20-5.40); White Blood Cell (WBC) Count 9.5 thou/uL (4.8-10.8)
[2019-08-02 14:16] LABS: INR-International Normal Ratio 1.1; PTT 28.5 SEC (22.9-36.1); Prothrombin Time 13.7 sec (12.0-14.7)
[2019-08-02 14:38] LABS: ALT (SGPT) 27 U/L (8-55); AST (SGOT) 28 U/L (5-34); Acetaminophen Less than 6.0 mcg/mL (10.0-30.0); Albumin 3.6 g/dL (3.5-5.0); Alcohol Less than 10 mg/dL (Less than 10); Alkaline Phosphatase 85 U/L (40-110); Anion Gap 11 mmol/L (10-20); BUN (Urea Nitrogen) 11 mg/dL (7.0-18.7); Bilirubin, Total 1.1 mg/dL (0.2-1.2); CK (CPK) 232 U/L (29-168); Calc. Creatinine Clearance 0 mL/min (70-130); Calcium 8.3 mg/dL (7.8-10.44); Carbon Dioxide 21 mmol/L (22-29); Chloride 109 mmol/L (98-107); Estimated GFR-MDRD 82; Globulin 2.5 g/dL (2.4-3.5); Glucose 120 mg/dL (70-105); Potassium 3.4 mmol/L (3.5-5.1); Protein, Total 6.1 g/dL (6.0-8.3); Salicylate Less than 8.0 mg/dL (15.0-30.0); Sodium 138 mmol/L (136-145)
[2019-08-02 14:59] LABS: Lactic Acid 0.6 mmol/L (0.5-2.2)
[2019-08-02 15:08] LABS: Pregnancy Test - Urine (BHCG) Negative (Negative); Pregu Control Background? CLEAR/WHITE (CLR/WHITE); Pregu Control Bar Appear? YES (CONTROL BAR); Specific Gravity 1.034 (1.002-1.036)
[2019-08-02 15:27] LABS: Amphetamine Detected (NotDetected); Barbiturates Screen Not Detected (NotDetected); Benzodiazepine Screen Not Detected (NotDetected); Cocaine Metabolite Screen Not Detected (NotDetected); Medtox Control Line Valid? VALID (VALID); Medtox Reader # READER 1; Methadone Not Detected (NotDetected); Methamphetamine Detected (NotDetected); Opiate Screen Not Detected (NotDetected); Oxycodone Screen Not Detected (NotDetected); Phencyclidine (PCP) Not Detected (NotDetected); THC/Cannabinoid Screen Not Detected (NotDetected); Tricyclic Screen Not Detected (NotDetected)
--- NOTE | 2019-08-03 15:52 | EKG ---
Test Reason : AMS Blood Pressure : / mmHG Vent. Rate : 076 BPM Atrial Rate : 076 BPM P-R Int : 142 ms QRS Dur : 088 ms QT Int : 414 ms P-R-T Axes : 046 018 038 degrees QTc Int : 465 ms Sinus rhythm with marked sinus arrhythmia Otherwise normal ECG Confirmed by JERALD MARTINEZ DO ([id number]), associate editor ROSALBA BRUNER ([id number]) on 08/03/2019 3:51:40 PM Referred By: JUAN Confirmed By:JERALD MARTINEZ DO
== END 2019-08-02 17:35 | disposition home or self-care (01) ==
LOC: ERS 13:29
DX: F15.129 Other stimulant abuse with intoxication, unspecified (principal); E11.9 Type 2 diabetes mellitus without complications; F31.9 Bipolar disorder, unspecified; F25.9 Schizoaffective disorder, unspecified; F43.10 Post-traumatic stress disorder, unspecified; F29 Unspecified psychosis not due to a substance or known physiological condition; Z79.84 Long term (current) use of oral hypoglycemic drugs; Z79.899 Other long term (current) drug therapy
CPT/HCPCS: 36415; 51701; 80053; 80306; 80307; 81025; 82550; 83605; 83880; 84484; 85025; 85610; 85730; 93005

== ENCOUNTER 2019-08-03 10:55 | Emergency (ER) | payer OTHER ==
--- NOTE | 2019-08-03 11:26 | RAD ---
RADIOGRAPH CHEST 1 VIEW: DATE: 08/03/2019 HISTORY: 48-year-old female with chest pain FINDINGS: There are no airspace densities, pulmonary edema, pneumothorax, or cardiomegaly. The lateral costophr enic angles are sharp. IMPRESSION: No acute cardiopulmonary findings.
[2019-08-03 11:44] LABS: #Basophils 0.1 thou/uL (0.0-0.2); #Eosinphils 0.2 thou/uL (0.0-0.7); #Lymphocytes 2.5 thou/uL (1.20-3.40); #Monocytes 0.8 thou/uL (0.11-0.59); #Neutrophils 6.4 thou/uL (1.40-6.50); %Basophils 0.5 % (0.0-1.0); %Eosinophils 1.6 % (0.0-10.0); %Monocytes 7.9 % (0.0-10.0); %Neutrophils 64.9 % (42.0-75.0); Hemoglobin 12.5 g/dL (12.0-16.0); Mean Corpuscular HGB CONC 32.9 g/dL (32.0-36.0); Mean Corpuscular Hemoglobin 29.4 pg (27.0-31.0); Mean Corpuscular Volume 89.2 fL (78.0-98.0); Mean Platelet Volume 8.7 fL (7.4-10.4); Platelet Count 260 thou/uL (130-400); RBC Distribution Width 11.7 % (11.5-14.5); Red Blood Cell (RBC) Count 4.25 mill/uL (4.20-5.40); White Blood Cell (WBC) Count 9.8 thou/uL (4.8-10.8)
[2019-08-03] MEDS ORDERED: Aspirin Chewable 81 MG TAB ONE (11:45)
[2019-08-03 12:08] LABS: ALT (SGPT) 27 U/L (8-55); AST (SGOT) 24 U/L (5-34); Albumin 3.5 g/dL (3.5-5.0); Alkaline Phosphatase 84 U/L (40-110); Anion Gap 10 mmol/L (10-20); BUN (Urea Nitrogen) 12 mg/dL (7.0-18.7); Bilirubin, Total 0.3 mg/dL (0.2-1.2); CK (CPK) 179 U/L (29-168); Calc. Creatinine Clearance 0 mL/min (70-130); Calcium 8.5 mg/dL (7.8-10.44); Carbon Dioxide 26 mmol/L (22-29); Chloride 106 mmol/L (98-107); Estimated GFR-MDRD 84; Globulin 2.6 g/dL (2.4-3.5); Glucose 98 mg/dL (70-105); Potassium 3.8 mmol/L (3.5-5.1); Protein, Total 6.1 g/dL (6.0-8.3); Sodium 138 mmol/L (136-145)
== END 2019-08-03 13:12 | disposition home or self-care (01) ==
LOC: ERS 10:55
DX: R07.89 Other chest pain (principal); E11.9 Type 2 diabetes mellitus without complications; F31.9 Bipolar disorder, unspecified; F17.200 Nicotine dependence, unspecified, uncomplicated; Z79.899 Other long term (current) drug therapy
CPT/HCPCS: 36415; 71045; 80053; 82550; 84484; 85025; 93005

== ENCOUNTER 2019-09-14 05:12 | Inpatient (IN) | payer OTHER ==
[2019-09-14] MEDS ORDERED: Succinylcholine Chloride 20 MG/ML 10 ml SYRINGE FS ONE (05:21)
[2019-09-14] MEDS ORDERED: Propofol 1,000 MG/100 ML VIAL IV ONE (05:29)
[2019-09-14] MEDS ORDERED: Rocuronium Bromide 10 MG/ML (10ML VIAL) ONE (05:36)
[2019-09-14 05:53] LABS: Actual Bicarbonate (HCO3a) 19.7 mEq/L (22-28); Analyzer IN Cardio ER; Base Excess (BEa) -5.8 mEq/L (-2.0 to +3.0); Calcium, Ionized (arterial) 1.09 mmol/L (1.12-1.30); Carboxyhemoglobin (COHb) 5.3 gm% (0.0-3.0); Hemoglobin (Hb) 13.2 g/dL (12.0-16.0); Potassium - ABG Lab 3.63 mmol/L (3.70-5.30); pH, Arterial 7.32 (7.35-7.45)
[2019-09-14 05:54] LABS: Puncture Site LRA
[2019-09-14 06:04] LABS: #Basophils 0.1 thou/uL (0.0-0.2); #Eosinphils 0.2 thou/uL (0.0-0.7); #Lymphocytes 3.3 thou/uL (1.20-3.40); #Monocytes 0.4 thou/uL (0.11-0.59); #Neutrophils 4.5 thou/uL (1.40-6.50); %Basophils 0.9 % (0.0-1.0); %Eosinophils 2.4 % (0.0-10.0); %Lymphocytes 38.7 % (21.0-51.0); %Monocytes 4.9 % (0.0-10.0); %Neutrophils 53.1 % (42.0-75.0); Hemoglobin 12.6 g/dL (12.0-16.0); Mean Corpuscular HGB CONC 32.3 g/dL (32.0-36.0); Mean Corpuscular Hemoglobin 29.2 pg (27.0-31.0); Mean Corpuscular Volume 90.5 fL (78.0-98.0); Mean Platelet Volume 8.7 fL (7.4-10.4); Platelet Count 254 thou/uL (130-400); RBC Distribution Width 11.9 % (11.5-14.5); Red Blood Cell (RBC) Count 4.32 mill/uL (4.20-5.40); White Blood Cell (WBC) Count 8.5 thou/uL (4.8-10.8)
[2019-09-14 06:11] LABS: BHCG - Serum Negative (NEGATIVE); Pregs Control Background? CLEAR/WHITE (CLR/WHITE); Pregs Control Bar Appear? YES (CONTROL BAR)
[2019-09-14 06:13] LABS: Bilirubin Negative (Negative); Blood, Urine Negative (Negative); Clarity Clear (Clear); Glucose, Urine (Dipstick) Normal (Negative); Ketone, Urine Negative (Negative); Leukocyte Negative Leu/uL (Negative); Nitrite Negative (Negative); Protein, Urine (Dipstick) Negative (Neg-Trace); Specific Gravity, Urine 1.009 (1.002-1.036); Urobilinogen Normal mg/dL (Less than 2)
[2019-09-14 06:23] LABS: Amphetamine Detected (NotDetected); Barbiturates Screen Not Detected (NotDetected); Benzodiazepine Screen Not Detected (NotDetected); Cocaine Metabolite Screen Not Detected (NotDetected); Medtox Control Line Valid? VALID (VALID); Medtox Reader # READER 4; Methadone Not Detected (NotDetected); Methamphetamine Detected (NotDetected); Opiate Screen Not Detected (NotDetected); Oxycodone Screen Not Detected (NotDetected); Phencyclidine (PCP) Not Detected (NotDetected); THC/Cannabinoid Screen Not Detected (NotDetected); Tricyclic Screen Not Detected (NotDetected)
[2019-09-14 06:25] LABS: Acetaminophen Less than 6.0 mcg/mL (10.0-30.0); Alcohol 61 mg/dL (Less than 10); Magnesium 1.7 mg/dL (1.6-2.6); Salicylate Less than 8.0 mg/dL (15.0-30.0)
[2019-09-14 06:28] LABS: ALT (SGPT) 30 U/L (8-55); AST (SGOT) 24 U/L (5-34); Albumin 3.5 g/dL (3.5-5.0); Alcohol 63 mg/dL (Less than 10); Alkaline Phosphatase 76 U/L (40-110); Anion Gap 10 mmol/L (10-20); BUN (Urea Nitrogen) 10 mg/dL (7.0-18.7); Bilirubin, Total 0.3 mg/dL (0.2-1.2); Calc. Creatinine Clearance 0 mL/min (70-130); Calcium 7.6 mg/dL (7.8-10.44); Carbon Dioxide 21 mmol/L (22-29); Chloride 111 mmol/L (98-107); Estimated GFR-MDRD Greater than 90; Globulin 2.5 g/dL (2.4-3.5); Glucose 127 mg/dL (70-105); Potassium 3.3 mmol/L (3.5-5.1); Sodium 139 mmol/L (136-145)
[2019-09-14] MEDS ORDERED: Acetaminophen 650 MG Suppository PR PRN (07:40)
[2019-09-14 08:37] VITALS: BMI 29.3
--- NOTE | 2019-09-14 08:54 | RAD ---
PORTABLE CHEST 1 VIEW: DATE: 09/14/2019. TIME: 5:11 AM. HISTORY: Respiratory failure. COMPARISON: 08/03/2019. FINDINGS/IMPRESSION: An endotracheal tube has been placed with tip at the level of the clavicular heads. A nasogastric tu be has been placed which can be traced below the level of the diaphragm with tip excluded from the fi lm. The heart size is normal. No lobar consolidation, pneumothoraces, or pleural effusions are seen . POS: [facility]
[2019-09-14] MEDS ORDERED: DISCONTINUE PREVIOUS NARCOTIC PAIN MEDICATIONS AND BENZODIAZEPINES FS SCH (09:09)
[2019-09-14] MEDS ORDERED: Lorazepam 2 MG/ML VIAL SLOW IVP PRN (09:09)
[2019-09-14] MEDS ORDERED: Propofol BOLUS 1,000 MG/100 ML VIAL IV PRN (09:09)
[2019-09-14] MEDS ORDERED: fentaNYL Citrate/PF 2,000 MCG in Sodium Chloride 0.9% 60 ML IV SCH (09:09)
[2019-09-14] MEDS ORDERED: Fentanyl BOLUS 250 ML IVPB PRN (09:09)
[2019-09-14] MEDS: Propofol 1,000 MG/100 ML VIAL IV PRN ×2 (09:36→18:35)
--- NOTE | 2019-09-14 12:28 | HP ---
CHIEF COMPLAINT: Altered mentation, respiratory failure, drug overdose. HISTORY OF PRESENT ILLNESS: A 48-year-old female with a history of multiple suicide attempts in the past, took prazosin and called the suicide hotline. When EMS arrived, she told she took prazosin. She walked to the police car, but then she collapsed en route to the [facility]. She was given IV fluids and Narcan without any relief, and she was intubated. No other information available. Family is not around to get history. The patient is requiring several rounds of sedation and she is intubated currently. REVIEW OF SYSTEMS: Not obtainable. PAST MEDICAL HISTORY: 1. Hepatitis C. 2. Spinal stenosis. 3. Diabetes type 2, not on treatment. 4. Anemia. PAST SURGICAL HISTORY: Breast reduction, tubal ligation, laminectomy, and hysterectomy. PAST PSYCHIATRIC HISTORY: 1. Bipolar disorder. 2. Schizoaffective disorder. 3. PTSD with psychotic features. 4. Noncompliant with treatments and medications. SOCIAL HISTORY: She drinks socially. She also smokes. She used methamphetamine few days ago prior to having this admission. FAMILY HISTORY: Significant for diabetes and arthritis. PHYSICAL EXAMINATION: VITAL SIGNS: Temperature 97.6, pulse 79, and blood pressure 119/60. She is on vent with FiO2 40% and saturating 100%. GENERAL: The patient requires heavy sedation. LUNGS: Anterior auscultation did not reveal any significant abnormalities in her lung sounds. ABDOMEN: Soft with good bowel sounds. CARDIOVASCULAR: Regular rate and rhythm. EXTREMITIES: Without any pitting edema or rash. LABORATORY DATA: CBC in the normal range. BMP panel: Potassium 3.3, calcium is 7.6, blood glucose 111. test is negative. TSH is in the normal range. Magnesium is 1.7. BNP is 15.3. Her UA is clear. UDS is positive for amphetamine and methamphetamine. Her chest x-ray showed ET tube in place. NG tube in place. No lobar consolidation, pneumothoraces, or pleural effusion. IMPRESSION: This is a 48-year-old female with, 1. Several psychiatric disorders, had overdosed on prazosin. 2. Acute respiratory failure requiring intubation. 3. Toxic metabolic encephalopathy due to drug overdose. 4. Drug overdose. PLAN: 1. she is currently on vent management. 2. Mostly, supportive measures. Replace the electrolytes. Wean off the vent. 3. DVT prophylaxis with Lovenox. 4. Full code. Job ID: [id number] MTDD
[2019-09-14] MEDS ORDERED: NS 0.9% w/ 40 MEQ KCL 1,000 ML IV SCH (13:15)
[2019-09-14] MEDS ORDERED: Electrolyte Replacement Protocol FS PRN (14:15)
[2019-09-14] MEDS: KCL IV SCH (14:56)
[2019-09-14] MEDS: NS IV SCH (14:56)
[2019-09-15] MEDS: Propofol 1,000 MG/100 ML VIAL IV PRN ×2 (00:35→06:18)
[2019-09-15 07:48] LABS: #Basophils 0.1 thou/uL (0.0-0.2); #Eosinphils 0.1 thou/uL (0.0-0.7); #Lymphocytes 2.2 thou/uL (1.20-3.40); #Monocytes 0.7 thou/uL (0.11-0.59); %Basophils 0.5 % (0.0-1.0); %Eosinophils 0.8 % (0.0-10.0); %Lymphocytes 18.1 % (21.0-51.0); %Monocytes 6.2 % (0.0-10.0); %Neutrophils 74.4 % (42.0-75.0); Hemoglobin 13.7 g/dL (12.0-16.0); Mean Corpuscular HGB CONC 32.5 g/dL (32.0-36.0); Mean Corpuscular Hemoglobin 29.1 pg (27.0-31.0); Mean Corpuscular Volume 89.7 fL (78.0-98.0); Mean Platelet Volume 8.7 fL (7.4-10.4); Platelet Count 244 thou/uL (130-400); RBC Distribution Width 12.1 % (11.5-14.5); Red Blood Cell (RBC) Count 4.69 mill/uL (4.20-5.40)
[2019-09-15 08:13] LABS: Anion Gap 11 mmol/L (10-20); BUN (Urea Nitrogen) 6 mg/dL (7.0-18.7); Calc. Creatinine Clearance 157 mL/min (70-130); Calcium 8.3 mg/dL (7.8-10.44); Carbon Dioxide 21 mmol/L (22-29); Chloride 110 mmol/L (98-107); Estimated GFR-MDRD Greater than 90; Glucose 129 mg/dL (70-105); Sodium 138 mmol/L (136-145)
[2019-09-15] MEDS ORDERED: DC Sedation Protocol FS ONE (09:55)
--- NOTE | 2019-09-15 10:57 | CON ---
DATE OF CONSULTATION: HISTORY OF PRESENT ILLNESS: Celia Boo is a 48-year-old female, who took an overdose of prazosin. She called [place], went to the police station, she collapsed, was given Narcan, intubated, and transferred here. She has been here for 24 hours in the ER, came to the ICU last night. She is on the vent, intubated, sedated. She has been here before in 2019 with a similar overdose issue. Longstanding history of bipolar disorder. PAST MEDICAL AND SURGICAL HISTORY: History from previous records indicates past medical history of hepatitis C, spinal stenosis, previous staph infection, and previous diabetes. Previous surgeries including tubal ligation, breast and reduction surgery. Apparently, she has a history of substance abuse, tobacco abuse. PHYSICAL EXAMINATION: GENERAL: She was intubated in the vent, sedated. All sedation was withheld. She became more arousable. VITAL SIGNS: Pulse 100, blood pressure sats 100%, and respiratory rate 18. CHEST: Decreased breath sounds. No wheezing. CARDIAC: Normal S1, S2. No gallops ABDOMEN: No masses. LABORATORY DATA: White count 12,000. Lytes are normal. Chest x-ray from 24 hours ago shows no acute infiltrates. ASSESSMENT AND PLAN: 1. Overdose on presumed prazosin. 2. Bipolar psychotic disorder. 3. Diabetes. We will extubate, need MHMR consult. She probably needs some kind of placement and ongoing counseling. Once we are able to assess her home medications, we will probably restart her home medications. 45 minutes of critical care time. Job ID: [id number]
[2019-09-15] MEDS ORDERED: Magnesium 2 GM/50 ML 2 GM in Premix Bag 1 BAG IVPB SCH (11:00)
[2019-09-15] MEDS: Sodium Chloride 0.9% 1,000 ML IV SCH (15:45)
--- NOTE | 2019-09-15 15:45 | PDOC.HOSPP ---
- Subjective Encounter Date: 09/15/19 Encounter Time: 11:50 Subjective: pt is extubated. i talk to RN later close to 4pm, still sleepy and somnolent. will wait until pt is more alert beofre putting [facility] c/s. - Objective Vital Signs & Weight: Vital Signs (12 hours) Temp Pulse Resp Pulse Ox 09/15/19 12:00 99.1 F 09/15/19 10:38 99 09/15/19 10:00 100 14 99 09/15/19 08:00 98.4 F 18 09/15/19 07:55 92 Weight Weight 198 lb 13.711 oz Most Recent Monitor Data Heart Rate from ECG 113 NIBP 88/62 NIBP BP-Mean 70 Respiration from ECG 20 SpO2 95 I&O: 09/14/19 09/15/19 09/16/19 06:59 06:59 06:59 Intake Total 1649 59 Output Total 3020 645 Balance -1371 -586 Result Diagrams: 09/15/19 07:21 09/15/19 07:21 Hospitalist ROS - Medication Medications: Active Medications Generic Name Dose Route Start Last Admin Trade Name Freq PRN Reason Stop Dose Admin Lorazepam 2 mg 09/14/19 09:09 09/14/19 09:27 Ativan SLOW IVP 10/14/19 09:09 2 mg Q1H PRN Administration Breakthrough agitation Propofol 1,000 mg 09/14/19 09:09 09/15/19 06:18 Diprivan IV 10/14/19 09:09 1,000 mg INF PRN Administration TO ACHIEVE GOAL RASS Protocol Sodium Chloride 10 ml 09/15/19 09:00 09/15/19 09:05 Flush - Normal Saline IVF 10 ml Q12HR MIGUEL Administration - Exam General Appearance: ill appearing General - other findings: extuabted Eye: PERRL ENT: normocephalic atraumatic Neck: supple Heart: RRR Respiratory: CTAB, normal chest expansion Gastrointestinal: soft, normal bowel sounds Neurological: no focal deficits Psychiatric: somnolent, lethargic Hosp A/P - Plan drug OD bipolar and several other pysch d/o Hyperglycemia Hypokalemia -resolved. Acute resp.failure d/t drug OD --s/p extubation. i talk to RN later close to 4pm, still sleepy and somnolent. will wait until pt is more alert before putting [facility] c/s.
[2019-09-15] MEDS ORDERED: risperiDONE 3 MG TAB PO SCH (17:15)
[2019-09-16 04:38] LABS: #Eosinphils 0.1 thou/uL (0.0-0.7); #Lymphocytes 3.5 thou/uL (1.20-3.40); #Monocytes 0.8 thou/uL (0.11-0.59); #Neutrophils 8.1 thou/uL (1.40-6.50); %Basophils 0.2 % (0.0-1.0); %Eosinophils 0.6 % (0.0-10.0); %Lymphocytes 27.8 % (21.0-51.0); %Monocytes 6.6 % (0.0-10.0); %Neutrophils 64.7 % (42.0-75.0); Hemoglobin 12.6 g/dL (12.0-16.0); Mean Corpuscular Hemoglobin 29.4 pg (27.0-31.0); Mean Corpuscular Volume 89.1 fL (78.0-98.0); Mean Platelet Volume 8.8 fL (7.4-10.4); Platelet Count 228 thou/uL (130-400); RBC Distribution Width 12.2 % (11.5-14.5); White Blood Cell (WBC) Count 12.4 thou/uL (4.8-10.8)
[2019-09-16 04:40] LABS: Anion Gap 11 mmol/L (10-20); BUN (Urea Nitrogen) 5 mg/dL (7.0-18.7); Calc. Creatinine Clearance 139 mL/min (70-130); Calcium 8.3 mg/dL (7.8-10.44); Carbon Dioxide 24 mmol/L (22-29); Chloride 108 mmol/L (98-107); Estimated GFR-MDRD 88; Glucose 121 mg/dL (70-105); Magnesium 2.1 mg/dL (1.6-2.6); Potassium 3.8 mmol/L (3.5-5.1); Sodium 139 mmol/L (136-145)
[2019-09-16] MEDS: risperiDONE 3 MG TAB PO SCH (08:24)
--- NOTE | 2019-09-16 09:23 | PRG ---
DATE OF SERVICE: 09/16/2019 SUBJECTIVE: This morning, she is awake, alert, and responsive. She is less agitated. OBJECTIVE: VITAL SIGNS: Temperature 98, saturations 100% on room air, blood pressure 140/70, respiratory rate 18. CHEST: No wheezing or crackles. CARDIAC: Normal S1, S2. No gallops. ABDOMEN: No masses. ASSESSMENT AND PLAN: 1. Presumed overdose. 2. Bipolar, severe depression. She is improved. Restarted home medications. She can probably need inpatient counseling, long-term care. [facility] has been consulted. Job ID: [id number]
--- NOTE | 2019-09-16 14:23 | PDOC.HOSPP ---
- Subjective Encounter Date: 09/16/19 Encounter Time: 13:01 Subjective: pt seen on the floor, talk to the ICU nurse. MH consult placed. pt looks somnolent, worley d/c'd; sitter at bedside. - Objective Vital Signs & Weight: Vital Signs (12 hours) Temp Pulse Resp BP Pulse Ox 09/16/19 09:28 98.2 F 89 20 116/74 93 L 09/16/19 08:00 98.7 F 09/16/19 03:00 98.8 F Weight Weight 198 lb 13.711 oz Most Recent Monitor Data Heart Rate from ECG 85 NIBP 140/73 NIBP BP-Mean 95 Respiration from ECG 18 SpO2 93 I&O: 09/15/19 09/16/19 09/17/19 06:59 06:59 06:59 Intake Total 1649 2155 135 Output Total 3020 3020 340 Balance -1371 -865 -205 Result Diagrams: 09/16/19 03:44 09/16/19 03:44 Hospitalist ROS - Medication Medications: Active Medications Generic Name Dose Route Start Last Admin Trade Name Freq PRN Reason Stop Dose Admin Sodium Chloride 1,000 mls @ 50 mls/hr 09/15/19 15:30 09/15/19 15:45 Normal Saline 0.9% IV 1,000 mls .Q20H MIGUEL Administration Lorazepam 2 mg 09/14/19 09:09 09/14/19 09:27 Ativan SLOW IVP 10/14/19 09:09 2 mg Q1H PRN Administration Breakthrough agitation Pantoprazole Sodium 40 mg 09/15/19 21:00 09/15/19 21:55 Protonix PO Not Given 2100 MIGUEL Propofol 1,000 mg 09/14/19 09:09 09/15/19 06:18 Diprivan IV 10/14/19 09:09 1,000 mg INF PRN Administration TO ACHIEVE GOAL RASS Protocol Risperidone 3 mg 09/16/19 09:00 09/16/19 08:24 Risperidone PO 3 mg DAILY MIGUEL Administration Sertraline HCl 50 mg 09/16/19 09:00 09/16/19 08:23 Zoloft PO 50 mg DAILY MIGUEL Administration Sodium Chloride 10 ml 09/15/19 09:00 09/16/19 08:24 Flush - Normal Saline IVF 10 ml Q12HR MIGUEL Administration - Exam General Appearance: NAD Eye: PERRL, anicteric sclera ENT: normocephalic atraumatic Neck: supple Heart: RRR Respiratory: CTAB, normal chest expansion Gastrointestinal: soft, normal bowel sounds Neurological: no focal deficits Psychiatric: not oriented, somnolent Hosp A/P - Plan drug OD bipolar and several other pysch d/o -sitter at bedside. Hyperglycemia Hypokalemia -resolved. Acute resp.failure d/t drug OD --s/p extubation. Mild Leukocytosis --no source fo infn.. - UA clear -likely acute stress demargination MHMR consulted.
[2019-09-16] MEDS: Sodium Chloride 0.9% 1,000 ML IV SCH (15:25)
[2019-09-16] MEDS: Nicotine 14 MG PATCH TD SCH (22:43)
[2019-09-17 06:30] LABS: #Basophils 0.1 thou/uL (0.0-0.2); #Eosinphils 0.2 thou/uL (0.0-0.7); #Lymphocytes 3.3 thou/uL (1.20-3.40); #Monocytes 0.8 thou/uL (0.11-0.59); #Neutrophils 6.1 thou/uL (1.40-6.50); %Basophils 0.5 % (0.0-1.0); %Lymphocytes 31.6 % (21.0-51.0); %Monocytes 7.5 % (0.0-10.0); %Neutrophils 58.3 % (42.0-75.0); Hemoglobin 13.1 g/dL (12.0-16.0); Mean Corpuscular HGB CONC 33.2 g/dL (32.0-36.0); Mean Corpuscular Hemoglobin 29.8 pg (27.0-31.0); Mean Corpuscular Volume 89.6 fL (78.0-98.0); Platelet Count 241 thou/uL (130-400); Red Blood Cell (RBC) Count 4.39 mill/uL (4.20-5.40); White Blood Cell (WBC) Count 10.5 thou/uL (4.8-10.8)
[2019-09-17 06:55] LABS: Anion Gap 11 mmol/L (10-20); BUN (Urea Nitrogen) 7 mg/dL (7.0-18.7); Calc. Creatinine Clearance 141 mL/min (70-130); Calcium 8.7 mg/dL (7.8-10.44); Carbon Dioxide 24 mmol/L (22-29); Chloride 107 mmol/L (98-107); Estimated GFR-MDRD 90; Glucose 122 mg/dL (70-105); Sodium 138 mmol/L (136-145)
[2019-09-17] MEDS: risperiDONE 3 MG TAB PO SCH (08:35)
[2019-09-17] MEDS: Acetaminophen 325 MG TAB PO PRN ×2 (12:13→18:29)
[2019-09-17] MEDS: Nicotine 14 MG PATCH TD SCH (14:24)
--- NOTE | 2019-09-17 15:20 | PDOC.HOSPP ---
- Subjective Encounter Date: 09/17/19 Encounter Time: 15:15 Subjective: f/u for suicide attempt by OD [facility]. Successfully extubated and transferred to medical floor. [facility] evaluation pending. No new complaints currently. - Objective Vital Signs & Weight: Vital Signs (12 hours) Temp Pulse Resp BP Pulse Ox 09/17/19 12:20 97.9 F 80 18 102/62 94 L 09/17/19 08:00 97 09/17/19 07:55 98.3 F 77 18 114/73 97 09/17/19 04:00 98.4 F 87 16 103/66 96 Weight Weight 198 lb 13.711 oz Most Recent Monitor Data Heart Rate from ECG 85 NIBP 140/73 NIBP BP-Mean 95 Respiration from ECG 18 SpO2 93 I&O: 09/16/19 09/17/19 09/18/19 06:59 06:59 06:59 Intake Total 2155 1035 Output Total 3020 340 Balance -865 695 Result Diagrams: 09/17/19 06:04 09/17/19 06:04 Additional Labs: Laboratory Tests 09/14/19 09/14/19 09/14/19 05:55 05:55 05:55 Magnesium B-Natriuretic Peptide 15.3 TSH 3rd Generation 1.3942 Serum , Qual Ur Amphetamines Screen U Methamphetamines Scrn Plasma Alcohol 63 H 09/14/19 09/14/19 09/14/19 05:55 05:55 06:03 Magnesium 1.7 B-Natriuretic Peptide TSH 3rd Generation Serum , Qual Negative Ur Amphetamines Screen Detected H U Methamphetamines Scrn Detected H Plasma Alcohol 61 H 09/16/19 03:44 Magnesium 2.1 B-Natriuretic Peptide TSH 3rd Generation Serum , Qual Ur Amphetamines Screen U Methamphetamines Scrn Plasma Alcohol Hospitalist ROS - Medication Medications: Active Medications Generic Name Dose Route Start Last Admin Trade Name Freq PRN Reason Stop Dose Admin Acetaminophen 650 mg 09/14/19 07:40 09/17/19 12:13 Tylenol PO 650 mg Q4H PRN Administration Headache/Fever/Mild Pain (1-3) Lorazepam 2 mg 09/14/19 09:09 09/14/19 09:27 Ativan SLOW IVP 10/14/19 09:09 2 mg Q1H PRN Administration Breakthrough agitation Nicotine 14 mg 09/16/19 22:30 09/17/19 14:24 Nicoderm Patch TD 14 mg Q24HR MIGUEL Administration Pantoprazole Sodium 40 mg 09/15/19 21:00 09/16/19 20:12 Protonix PO 40 mg 2100 MIGUEL Administration Propofol 1,000 mg 09/14/19 09:09 09/15/19 06:18 Diprivan IV 10/14/19 09:09 1,000 mg INF PRN Administration TO ACHIEVE GOAL RASS Protocol Risperidone 3 mg 09/16/19 09:00 09/17/19 08:35 Risperidone PO 3 mg DAILY MIGUEL Administration Sertraline HCl 50 mg 09/16/19 09:00 09/17/19 08:35 Zoloft PO 50 mg DAILY MIGUEL Administration Sodium Chloride 10 ml 09/15/19 09:00 09/17/19 08:38 Flush - Normal Saline IVF 10 ml Q12HR MIGUEL Administration - Exam General Appearance: NAD, awake alert General - other findings: responsive, smiling Eye: PERRL, anicteric sclera ENT: normocephalic atraumatic, no oropharyngeal lesions Neck: supple, symmetric, no JVD, no thyromegaly, no lymphadenopathy Heart: RRR, no murmur, no gallops, no rubs, normal peripheral pulses Heart - other findings: S1, S2 Respiratory: CTAB, no wheezes, no rales, no ronchi, normal chest expansion, no tachypnea Gastrointestinal: soft, non-tender, non-distended, normal bowel sounds, no palpable masses, no hepatomegaly Extremities: no cyanosis, no clubbing, no edema Skin: normal turgor, no lesions Neurological: cranial nerve grossly intact, no new deficit Musculoskeletal: normal tone, normal strength, no muscle wasting Psychiatric: normal affect, A&O x 3 Hosp A/P (1) Suicide attempt by multiple drug overdose Code(s): T50.912A - POISN BY MULTIPLE UNSP DRUG/MEDS/BIOL SUBST, SELF-HARM, INIT Status: Acute Plan: Recurrent episodes, [facility] consult pending, sitter for 1:1 (2) Acute respiratory failure with hypoxemia Code(s): J96.01 - ACUTE RESPIRATORY FAILURE WITH HYPOXIA Status: Acute Plan: s/p mech ventilation, remains on RA currently (3) Polysubstance abuse Code(s): F19.10 - OTHER PSYCHOACTIVE SUBSTANCE ABUSE, UNCOMPLICATED Status: Acute Plan: [facility] consult pending, detox options (4) Depression Code(s): F32.9 - MAJOR DEPRESSIVE DISORDER, SINGLE EPISODE, UNSPECIFIED Status : Chronic Plan: continue Risperdal/Zoloft - Plan social service coordinator, out of bed/ambulate, DVT proph w/SCDs Stable currently Medically cleared Continue home regimen of Zoloft/Risperdal Sitter 1:1 observation MR consult pending
[2019-09-17] MEDS ORDERED: Magnesium Citrate 300 ML BOT PO SCH (15:30)
[2019-09-17] MEDS ORDERED: Ketorolac Tromethamine 30 MG/ML VIAL IVP SCH (23:00)
[2019-09-18 06:20] LABS: #Basophils 0.1 thou/uL (0.0-0.2); #Eosinphils 0.2 thou/uL (0.0-0.7); #Lymphocytes 3.2 thou/uL (1.20-3.40); #Monocytes 0.9 thou/uL (0.11-0.59); #Neutrophils 6.2 thou/uL (1.40-6.50); %Basophils 0.9 % (0.0-1.0); %Eosinophils 2.1 % (0.0-10.0); %Monocytes 8.2 % (0.0-10.0); %Neutrophils 58.7 % (42.0-75.0); Hemoglobin 13.4 g/dL (12.0-16.0); Mean Corpuscular HGB CONC 32.8 g/dL (32.0-36.0); Mean Corpuscular Hemoglobin 29.3 pg (27.0-31.0); Mean Corpuscular Volume 89.2 fL (78.0-98.0); Mean Platelet Volume 8.7 fL (7.4-10.4); Platelet Count 254 thou/uL (130-400); Red Blood Cell (RBC) Count 4.57 mill/uL (4.20-5.40); White Blood Cell (WBC) Count 10.6 thou/uL (4.8-10.8)
[2019-09-18 06:27] LABS: Anion Gap 9 mmol/L (10-20); BUN (Urea Nitrogen) 9 mg/dL (7.0-18.7); Calc. Creatinine Clearance 127 mL/min (70-130); Carbon Dioxide 30 mmol/L (22-29); Chloride 102 mmol/L (98-107); Estimated GFR-MDRD 79; Glucose 111 mg/dL (70-105); Potassium 4.1 mmol/L (3.5-5.1); Sodium 137 mmol/L (136-145)
[2019-09-18 06:28] LABS: Calcium 8.8 mg/dL (7.8-10.44)
[2019-09-18] MEDS: Acetaminophen 325 MG TAB PO PRN ×2 (08:37→14:36)
[2019-09-18] MEDS: risperiDONE 3 MG TAB PO SCH (08:38)
[2019-09-18 12:57] VITALS: BP 116/65; TEMP 96.2
--- NOTE | 2019-09-19 04:02 | DIS ---
DATE OF ADMISSION: 09/14/2019 DATE OF DISCHARGE: 09/18/2019 DISCHARGE DIAGNOSES: 1. Suicide attempt by history multiple drug overdoses. 2. Acute hypoxic respiratory failure, status post mechanical ventilation. 3. Polysubstance abuse. 4. Depression. CONSULTATIONS: 1. [facility] Service. 2. Dr. Reddy with Pulmonology/Critical Care Service. PERTINENT LABORATORY AND X-RAY FINDINGS: BNP 15.3. TSH 1.39. Serum beta-hCG negative on 09/14/2019. CBC showed a white blood cell count ranged between 8.5 to 12.4. Urine drug screen dated 09/14/2019, positive for amphetamines. Plasma alcohol level ranged between 61 to 63. Portable chest x-ray dated 09/14/2019, showed endotracheal tube in appropriate position. No acute infiltrates identified. HOSPITAL COURSE: The patient was initially admitted to the Critical Care Unit after an intentional ingestion with suicide attempt with apparent overdose of prazosin. Urine drug screen was positive for methamphetamines as well as alcohol. The patient was initially given IV fluids and Narcan, however, became obtunded and hypoxic in the emergency room, requiring intubation. The patient was placed in the Critical Care Unit and monitored by the Pulmonology Service, rapidly weaning off mechanical ventilation and stabilizing on room air. The patient was given general supportive management and transferred to the medical floor. The patient was evaluated by [facility] Services due to questionable suicide attempt with recommendations to discharge home and follow up on an outpatient basis with [facility] Services in [place], [place]. The patient overall remained clinically stable, tolerating regular oral intake, ambulating without assistance or difficulty, and voiding appropriately. I have examined the patient at the time of discharge, and discussed followup instructions as well as safety plan, which patient verbalizes agreement to. The patient ready for discharge on 09/18/2019. DISCHARGE MEDICATIONS: 1. Prazosin 2 mg p.o. at bedtime. 2. Risperdal 3 mg p.o. daily. 3. Zoloft 50 mg p.o. daily. FOLLOWUP: The patient may follow up with Dr. Iglesias at [place], [place]. The patient will follow up with [facility] Services under the agreement with safety plan established on 09/18/2019. CONDITION ON DISCHARGE: Stable. ACTIVITY: Ad-denise. DIET: Regular. CODE STATUS: Full. DISPOSITION: To home, 09/18/2019. TIME SPENT: Total time preparing and coordinating discharge, 32 minutes. Job ID: [id number]
== END 2019-09-18 14:41 | disposition home or self-care (01) | DRG 917 ==
LOC: ERS 05:12 → CCU 06:40 → T4-A 09-16 09:06
PROVIDERS: ADMIT Internal Medicine; ATTEND Internal Medicine
PROC: 5A1945Z Respiratory Ventilation, 24-96 Consecutive Hours (ICD-10-PCS; principal; 2019-09-14)
PROC: 0BH17EZ Insertion of Endotracheal Airway into Trachea, Via Natural or Artificial Opening (ICD-10-PCS; 2019-09-14)
DX: T44.6X2A Poisoning by alpha-adrenoreceptor antagonists, intentional self-harm, initial encounter (principal); R40.2312 Coma scale, best motor response, none, at arrival to emergency department; R40.2112 Coma scale, eyes open, never, at arrival to emergency department; R40.2212 Coma scale, best verbal response, none, at arrival to emergency department; J96.00 Acute respiratory failure, unspecified whether with hypoxia or hypercapnia; G92 Toxic encephalopathy; F31.4 Bipolar disorder, current episode depressed, severe, without psychotic features; M48.00 Spinal stenosis, site unspecified; F25.9 Schizoaffective disorder, unspecified; F43.10 Post-traumatic stress disorder, unspecified; F17.210 Nicotine dependence, cigarettes, uncomplicated; E11.65 Type 2 diabetes mellitus with hyperglycemia; F15.10 Other stimulant abuse, uncomplicated; F10.10 Alcohol abuse, uncomplicated; E87.6 Hypokalemia; D72.829 Elevated white blood cell count, unspecified; Z98.51 Tubal ligation status; Z90.710 Acquired absence of both cervix and uterus; Z91.19 Patient's noncompliance with other medical treatment and regimen; Z91.14 Patient's other noncompliance with medication regimen; Z79.899 Other long term (current) drug therapy
CPT/HCPCS: 31500; 36415; 36416; 43752; 51702; 71045; 80048; 80053; 80306; 80307; 81003; 82805; 83735; 83880; 84443; 84703; 85025; 93005; 94002; 94003; 96365; 96366; J1885; J2060; J2704; J3010; J3475; J3490

== ENCOUNTER 2019-09-27 09:23 | Outpatient (CLI) | payer OTHER ==
--- NOTE | 2019-09-27 11:47 | ULT ---
HEPATIC ULTRASOUND WITH JANG SCALE AND COLOR FLOW AND SPECTRAL DOPPLER IMAGING: HISTORY: Chronic hepatitis C. FINDINGS: The liver demonstrates homogeneous echotexture without focal mass or intrahepatic ductal dilatation. The gallbladder is contracted without definite gallstones. The gallbladder wall appears prominent m easuring 5 mm. No pericholecystic fluid is seen. The spleen is normal measuring 11.3 cm in length. The visualized portions of the pancreas are normal. No free fluid is seen. There is normal flow and spectral waveforms in the hepatic, portal, and splenic vasculature. IMPRESSION: No evidence of hepatocellular carcinoma. POS: [facility]
== END 2019-09-27 09:24 | disposition home or self-care (01) ==
LOC: BICULT 09:23
PROVIDERS: ATTEND Physician Assistant Medical
DX: Z12.11 Encounter for screening for malignant neoplasm of colon (principal); B18.2 Chronic viral hepatitis C
CPT/HCPCS: 76705

== ENCOUNTER 2019-12-15 21:51 | Emergency (ER) | payer OTHER ==
[2019-12-15] MEDS ORDERED: Boostrix 0.5 ML VIAL ONE (22:17)
[2019-12-15] MEDS ORDERED: CEFAZOLIN 1 GM VIAL ONE (22:18)
--- NOTE | 2019-12-15 23:24 | RAD ---
XR Chest 1 View Portable HISTORY: Chest pain COMPARISON: 10/21/2019 FINDINGS: The heart size is normal. The lungs are well expanded without focal areas of consolidation, pneumothorax or pleural effusions. There is scarring in the right costophrenic angle. IMPRESSION: No radiographic evidence of acute cardiopulmonary process.
[2019-12-16 01:04] LABS: Acetaminophen Less than 6.0 mcg/mL (10.0-30.0); Alcohol 68 mg/dL (Less than 10); Salicylate Less than 8.0 mg/dL (15.0-30.0)
== END 2019-12-16 03:06 | disposition home or self-care (01) ==
LOC: ERS 21:51
DX: S02.85XA Fracture of orbit, unspecified, initial encounter for closed fracture (principal); F10.129 Alcohol abuse with intoxication, unspecified; D64.9 Anemia, unspecified; E11.9 Type 2 diabetes mellitus without complications; F31.9 Bipolar disorder, unspecified; F20.9 Schizophrenia, unspecified; F17.210 Nicotine dependence, cigarettes, uncomplicated; Z79.899 Other long term (current) drug therapy
CPT/HCPCS: 36600; 71045; 80307; 84443; 90471; 90715; 93005; J0690

== ENCOUNTER 2021-04-25 09:43 | Outpatient (CLI) | payer OTHER | END 2021-04-25 09:44 | disposition home or self-care (01) | LOC: RAD 09:43 | PROVIDERS: ATTEND Internal Medicine Pulmonary Disease | DX: R06.00 Dyspnea, unspecified (principal) | CPT/HCPCS: 71046 ==

== ENCOUNTER 2022-01-26 20:29 | Emergency (ER) | payer OTHER | END 2022-01-26 22:34 | disposition home or self-care (01) | LOC: ERS 20:29 | DX: M79.672 Pain in left foot (principal); M79.671 Pain in right foot; E11.9 Type 2 diabetes mellitus without complications; F17.210 Nicotine dependence, cigarettes, uncomplicated | CPT/HCPCS: 99283 ==

== ENCOUNTER 2022-01-28 21:23 | Emergency (ER) | payer OTHER ==
[2022-01-28 22:16] LABS: #Basophils 0.1 thou/uL (0.0-0.2); #Eosinphils 0.1 thou/uL (0.0-0.7); #Lymphocytes 2.5 thou/uL (1.20-3.40); #Monocytes 0.7 thou/uL (0.11-0.59); #Neutrophils 6.3 thou/uL (1.40-6.50); %Basophils 0.5 % (0.0-1.0); %Eosinophils 1.5 % (0.0-10.0); %Lymphocytes 25.4 % (21.0-51.0); %Monocytes 7.5 % (0.0-10.0); %Neutrophils 65.1 % (42.0-75.0); Hemoglobin 14.3 g/dL (12.0-16.0); Mean Corpuscular Hemoglobin 28.9 pg (27.0-31.0); Mean Corpuscular Volume 90.4 fl (78.0-98.0); Mean Platelet Volume 8.4 fL (7.4-10.4); Platelet Count 261 10x3/uL (130-400); RBC Distribution Width 11.9 % (11.5-14.5); Red Blood Cell (RBC) Count 4.94 mill/uL (4.20-5.40); White Blood Cell (WBC) Count 9.7 10x3/uL (4.8-10.8)
[2022-01-28 22:38] LABS: ALT (SGPT) 39 U/L (8-55); AST (SGOT) 26 U/L (5-34); Albumin 3.7 g/dL (3.5-5.0); Alkaline Phosphatase 93 U/L (40-110); Anion Gap 11 mmol/L (10-20); BUN (Urea Nitrogen) 11 mg/dL (7.0-18.7); Bilirubin, Total 0.4 mg/dL (0.2-1.2); Calc. Creatinine Clearance 0 mL/min (70-130); Calcium 9.4 mg/dL (7.8-10.44); Carbon Dioxide 26 mmol/L (22-29); Chloride 105 mmol/L (98-107); Estimated GFR 88; Globulin 2.9 g/dL (2.4-3.5); Glucose 134 mg/dL (70-105); Potassium 4.4 mmol/L (3.5-5.1); Protein, Total 6.6 g/dL (6.0-8.3); Sodium 138 mmol/L (136-145)
== END 2022-01-29 03:16 ==
LOC: ERS 21:23
DX: R07.9 Chest pain, unspecified (principal); E11.9 Type 2 diabetes mellitus without complications; F17.210 Nicotine dependence, cigarettes, uncomplicated
CPT/HCPCS: 36415; 71045; 80053; 84484; 85025; 93005

== ENCOUNTER 2022-02-08 10:31 | Emergency (ER) | payer OTHER ==
[2022-02-08] MEDS ORDERED: HYDROcodone/Acetaminophen 5/325 mg Tablet ONE (12:31)
== END 2022-02-08 12:53 | disposition home or self-care (01) ==
LOC: ERS 10:31
DX: M79.672 Pain in left foot (principal); M79.671 Pain in right foot; E11.9 Type 2 diabetes mellitus without complications; F17.210 Nicotine dependence, cigarettes, uncomplicated
CPT/HCPCS: 99283

== ENCOUNTER 2022-02-09 13:07 | Emergency (ER) | payer OTHER ==
[2022-02-09 13:44] LABS: #Basophils 0.1 thou/uL (0.0-0.2); #Eosinphils 0.1 thou/uL (0.0-0.7); #Lymphocytes 3.7 thou/uL (1.20-3.40); #Monocytes 0.7 thou/uL (0.11-0.59); #Neutrophils 5.3 thou/uL (1.40-6.50); %Basophils 0.5 % (0.0-1.0); %Eosinophils 1.5 % (0.0-10.0); %Lymphocytes 37.2 % (21.0-51.0); %Monocytes 6.8 % (0.0-10.0); %Neutrophils 54.1 % (42.0-75.0); Hemoglobin 13.3 g/dL (12.0-16.0); Mean Corpuscular HGB CONC 32.4 g/dL (32.0-36.0); Mean Corpuscular Hemoglobin 29.1 pg (27.0-31.0); Mean Corpuscular Volume 89.9 fl (78.0-98.0); Mean Platelet Volume 8.5 fL (7.4-10.4); Platelet Count 249 10x3/uL (130-400); Red Blood Cell (RBC) Count 4.57 mill/uL (4.20-5.40); White Blood Cell (WBC) Count 9.9 10x3/uL (4.8-10.8)
[2022-02-09 14:04] LABS: ALT (SGPT) 31 U/L (8-55); AST (SGOT) 24 U/L (5-34); Albumin 3.7 g/dL (3.5-5.0); Alkaline Phosphatase 80 U/L (40-110); Anion Gap 13 mmol/L (10-20); BUN (Urea Nitrogen) 11 mg/dL (7.0-18.7); Bilirubin, Total 0.3 mg/dL (0.2-1.2); Calc. Creatinine Clearance 0 mL/min (70-130); Calcium 8.8 mg/dL (7.8-10.44); Carbon Dioxide 21 mmol/L (22-29); Chloride 108 mmol/L (98-107); Estimated GFR 102; Globulin 3.1 g/dL (2.4-3.5); Glucose 135 mg/dL (70-105); Potassium 3.8 mmol/L (3.5-5.1); Protein, Total 6.8 g/dL (6.0-8.3); Sodium 138 mmol/L (136-145)
[2022-02-09] MEDS ORDERED: levETIRAcetam 500 MG/5 ML VIAL ONE (14:14)
[2022-02-09 14:45] LABS: Bilirubin Negative (Negative); Blood, Urine Negative (Negative); Clarity Clear (Clear); Glucose, Urine (Dipstick) Normal (Negative); Ketone, Urine Negative (Negative); Leukocyte Negative Leu/uL (Negative); Nitrite Negative (Negative); Protein, Urine (Dipstick) Negative (Neg-Trace); Specific Gravity, Urine 1.025 (1.002-1.036); Urobilinogen Normal mg/dL (Less than 2)
== END 2022-02-09 15:39 | disposition home or self-care (01) ==
LOC: ERS 13:07
DX: G40.909 Epilepsy, unspecified, not intractable, without status epilepticus (principal); E11.9 Type 2 diabetes mellitus without complications; F17.210 Nicotine dependence, cigarettes, uncomplicated
CPT/HCPCS: 36415; 80053; 81003; 85025; J1953

== ENCOUNTER 2022-02-10 06:16 | Emergency (ER) | payer OTHER ==
[2022-02-10 10:23] LABS: SARS-CoV-2 NAA Rapid Test Not Detected (NotDetected)
== END 2022-02-10 10:33 | disposition home or self-care (01) ==
LOC: ERS 06:16
DX: B34.9 Viral infection, unspecified (principal); E11.9 Type 2 diabetes mellitus without complications; F17.210 Nicotine dependence, cigarettes, uncomplicated; Z20.822 Contact with and (suspected) exposure to COVID-19; G40.909 Epilepsy, unspecified, not intractable, without status epilepticus
CPT/HCPCS: 36415; 80053; 81003; 85025; 96374; 99283; J1953